=== PATIENT | male | born 1960 | race Caucasian/White ===

== ENCOUNTER 2016-08-18 11:27 | Emergency (ER) | payer OTHER | END 2016-08-18 13:35 | disposition home or self-care (01) | LOC: FER 11:27 | DX: S62.632A Displaced fracture of distal phalanx of right middle finger, initial encounter for closed fracture (principal); Z88.0 Allergy status to penicillin; W23.0XXA Caught, crushed, jammed, or pinched between moving objects, initial encounter; Y92.009 Unspecified place in unspecified non-institutional (private) residence as the place of occurrence of the external cause | CPT/HCPCS: 73110; 73130; 99283 ==

== ENCOUNTER 2020-08-30 11:41 | Emergency (ER) | payer OTHER ==
[~2020-08-30 11:41] MED LIST: METOPROLOL TART25 MG PO; NORVASC10 MG PO; PERCOCET 5-3251 EACH PO; PLAVIX75 MG PO; SIMVASTATIN20 MG PO; SINGULAIR10 MG PO; TOPROL XL 25MG25 MG PO; ZESTRIL20 MG PO
== END 2020-08-30 13:01 | disposition home or self-care (01) ==
LOC: FER 11:41
DX: S52.614A Nondisplaced fracture of right ulna styloid process, initial encounter for closed fracture (principal); I10 Essential (primary) hypertension; F17.210 Nicotine dependence, cigarettes, uncomplicated; Z79.899 Other long term (current) drug therapy; W28.XXXA Contact with powered lawn mower, initial encounter; Y92.009 Unspecified place in unspecified non-institutional (private) residence as the place of occurrence of the external cause
CPT/HCPCS: 73110; 90471; 90715

== ENCOUNTER 2020-10-20 16:22 | Emergency (ER) | payer OTHER ==
[2020-10-20 20:05] LABS: EOSINOPHIL 4.8 % (0-5); HCT 47.1 % (42.0-52.0); LYMPHOCYTE 26.6 % (15-48); MCH 30.8 pg (25.0-31.0); MCV 90.8 fL (78.0-100.0); MONOCYTE 7.6 % (0-12); MPV 9.4 fL (6.0-9.5); NEUTROPHIL 59.5 % (41-80); NRBC 0; PLT 203 K/uL (150-400); RBC 5.19 M/uL (4.70-6.00); RDW 12.8 % (11.5-14.0); WBC 6.1 K/uL (4.0-10.5)
[2020-10-20 20:14] LABS: INR 1.06 (0.9-1.2); PROTHROMBIN TIME 13.2 SECONDS (11.8-13.4)
[2020-10-20 20:23] LABS: ALBUMIN 3.8 g/dL (3.4-5.0); BILIRUBIN - TOTAL 0.7 mg/dL (0.2-1.0); BUN/CREAT RATIO (CALC) 7.6 RATIO; CREATININE 0.79 mg/dL (0.67-1.17); GLOBULIN (CALCULATION) 3.9 g/dL; POTASSIUM 4.3 mmol/L (3.5-5.1); TOTAL PROTEIN 7.7 g/dL (6.4-8.2)
== END 2020-10-20 21:10 | disposition home or self-care (01) ==
LOC: FER 16:22
PROVIDERS: Emergency Medicine
DX: S09.90XA Unspecified injury of head, initial encounter (principal); S00.33XA Contusion of nose, initial encounter; S00.531A Contusion of lip, initial encounter; F17.210 Nicotine dependence, cigarettes, uncomplicated; I10 Essential (primary) hypertension; Z88.6 Allergy status to analgesic agent; Z95.1 Presence of aortocoronary bypass graft; Z79.01 Long term (current) use of anticoagulants; W22.8XXA Striking against or struck by other objects, initial encounter; Y92.008 Other place in unspecified non-institutional (private) residence as the place of occurrence of the external cause
CPT/HCPCS: 36415; 70450; 80053; 85025; 85610